=== PATIENT | male | born 1960 ===

== ENCOUNTER 2018-11-12 08:41 | Outpatient (CLI) | payer OTHER ==
[~2018-11-12 08:41] MED LIST: ALLOPURINOL300 MG; FENOFIBRATE160 MG; FOSINOPRIL SODI20 MG; GLIMEPIRIDE4 MG; GLUMETZA1000 MG; LANTUS100 U/ML; LEVOTHROID50 MCG; ZETIA10 MG; ZOCOR40 MG
== END 2018-11-12 08:43 | disposition home or self-care (01) ==
LOC: SONOGRAMA 08:41 → MAMO-SONO 10:45
DX: M77.12 Lateral epicondylitis, left elbow (principal); M77.01 Medial epicondylitis, right elbow